=== PATIENT | male | born 1995 | race Two or more races ===

== ENCOUNTER 2018-07-14 20:15 | Emergency (ER) | payer OTHER | END 2018-07-14 20:30 | disposition left against medical advice (07) | LOC: ED 20:15 | DX: Z53.21 Procedure and treatment not carried out due to patient leaving prior to being seen by health care provider (principal) ==

== ENCOUNTER 2018-07-29 06:24 | Inpatient (IN) | payer OTHER ==
[~2018-07-29] VITALS: Ht 180.3 cm; Wt 86.0 kg
[2018-07-29 06:29] VITALS: Ht 180.3 cm; Wt 86.0 kg
[2018-07-29 07:01] LABS: BASOPHIL % 0.8 % (0-2); PLATELET COUNT 196 x10^3mcL (130-400); RED CELL DISTRIBUTION WIDTH 12.7 % (11.5-14.5)
[2018-07-29 07:28] LABS: CALCIUM 9.1 mg/dL (8.5-10.1); CARBON DIOXIDE 30.3 mmol/L (21-32); CHLORIDE SERUM 105 mmol/L (98-107); CREATININE SERUM 0.9 mg/dL (0.7-1.3); GFR1 > 60 mL/min; GLUCOSE SERUM 115 mg/dL (74-106); POTASSIUM SERUM 3.9 mmol/L (3.5-5.1); SODIUM SERUM 144 mmol/L (136-145)
[2018-07-29 07:32] LABS: ALBUMIN 4.1 g/dL (3.4-5.0); ALKALINE PHOSPHATASE 64 U/L (46-116); ALT/SGPT 49 U/L (16-63); AMYLASE 79 U/L (25-115); AST/SGOT 26 U/L (15-37); BILIRUBIN TOTAL 0.5 mg/dL (0.20-1.00); LIPASE 173 IU/L (73-393); TOTAL PROTEIN, SERUM 7.3 g/dL (6.4-8.2)
[2018-07-29 08:00] LABS: microscopic required? NO
[2018-07-29 08:42] LABS: UA SPECIFIC GRAVITY >=1.030 (1.005-1.035); urine erythrocyte NEGATIVE (NEGATIVE)
[2018-07-29 13:01] VITALS: BP 123/82
[2018-07-29 17:50] VITALS: BP 105/50
[2018-07-29 21:38] VITALS: BP 106/60
[2018-07-30 05:30] VITALS: BP 95/46
[2018-07-30 07:07] LABS: ALBUMIN 3.4 g/dL (3.4-5.0); ALKALINE PHOSPHATASE 61 U/L (46-116); ALT/SGPT 39 U/L (16-63); AST/SGOT 22 U/L (15-37); BASOPHIL % 1.1 % (0-2); BILIRUBIN TOTAL 0.6 mg/dL (0.20-1.00); CALCIUM 8.6 mg/dL (8.5-10.1); CARBON DIOXIDE 31.9 mmol/L (21-32); CHLORIDE SERUM 108 mmol/L (98-107); GFR1 > 60 mL/min; GLUCOSE SERUM 93 mg/dL (74-106); PLATELET COUNT 183 x10^3mcL (130-400); POTASSIUM SERUM 4.1 mmol/L (3.5-5.1); RED CELL DISTRIBUTION WIDTH 12.6 % (11.5-14.5); SODIUM SERUM 143 mmol/L (136-145)
[2018-07-30 07:08] LABS: TOTAL PROTEIN, SERUM 6.1 g/dL (6.4-8.2)
[2018-07-30 09:38] VITALS: BP 121/63
[2018-07-30 15:55] VITALS: BP 132/71
[2018-07-30 17:27] VITALS: BP 135/86
[2018-07-30 21:21] VITALS: BP 128/80
[2018-07-31 05:31] VITALS: BP 122/62
[2018-07-31 06:22] LABS: PLATELET COUNT 219 x10^3mcL (130-400); RED CELL DISTRIBUTION WIDTH 12.4 % (11.5-14.5)
[2018-07-31 06:30] LABS: BASOPHIL % 0 % (0-2)
[2018-07-31 06:59] LABS: ALBUMIN 3.9 g/dL (3.4-5.0); ALKALINE PHOSPHATASE 68 U/L (46-116); ALT/SGPT 62 U/L (16-63); AST/SGOT 35 U/L (15-37); BILIRUBIN TOTAL 0.72 mg/dL (0.20-1.00); CALCIUM 9.1 mg/dL (8.5-10.1); CARBON DIOXIDE 26.8 mmol/L (21-32); CHLORIDE SERUM 103 mmol/L (98-107); CREATININE SERUM 0.9 mg/dL (0.7-1.3); GFR1 > 60 mL/min; GLUCOSE SERUM 125 mg/dL (74-106); POTASSIUM SERUM 4.3 mmol/L (3.5-5.1); SODIUM SERUM 139 mmol/L (136-145); TOTAL PROTEIN, SERUM 7.1 g/dL (6.4-8.2)
[2018-07-31 09:10] VITALS: BP 131/79
[2018-07-31 13:14] VITALS: BP 131/79
== END 2018-07-31 13:48 | disposition home or self-care (01) | DRG 263 ==
LOC: ED 06:24 → MU 10:31
PROVIDERS: Specialist; Surgery; ADMIT Internal Medicine Pulmonary Disease
PROC: 0FT44ZZ Resection of Gallbladder, Percutaneous Endoscopic Approach (ICD-10-PCS; principal; 2018-07-30 10:30)
DX: K80.62 Calculus of gallbladder and bile duct with acute cholecystitis without obstruction (principal); J45.909 Unspecified asthma, uncomplicated
CPT/HCPCS: J0690; J1170; J1650; J1885; J2175; J2250; J2405; J2543; J2550; J2765; J3010; J3490; J7030